=== PATIENT | female | born 1990 | race Caucasian/White ===

== ENCOUNTER 2022-05-09 12:27 | Emergency (ER) | payer BC, SELFPAY ==
[2022-05-09 12:34] VITALS: BP 134/88; PULSE 90; RESP 18; TEMP 36.8; O2SAT 99
[2022-05-09] MEDS: GI COCKTAIL (VISC LIDO/ANTACID) 30 ML PO (13:15)
[2022-05-09] MEDS: ONDANSETRON 2 MG/ML inj 4 MG IVP (13:23)
[2022-05-09 13:38] LABS: Basophils Percent Auto 0.6 % (0.0-3.0); Hematocrit 40.4 % (33.0-51.0); Hemoglobin* 13.6 gm/dL (12.0-16.0); Immature Granulocytes Pct Auto 0.2 %; Mean Corpuscular HGB Conc 34 gm/dL (32-36); Mean Corpuscular Hemoglobin 28 pg (26-34); Mean Corpuscular Volume 83 fL (80-100); Monocytes Percent Auto 9.1 % (0.0-11.0); Neutrophils Percent Auto 65.1 % (42.0-72.0); Platelet Count* 425 K/uL (140-440); RDW Coefficient of Variation % 12.8 % (11.5-15.5); Red Blood Count 4.85 m/uL (4.00-5.20); White Blood Count* 12.46 K/uL (4.50-11.00)
[2022-05-09 13:43] LABS: Slide Review Reflex No
[2022-05-09 13:51] VITALS: BP 150/105; PULSE 85; O2SAT 99
[2022-05-09 13:57] LABS: Chloride* 105 mmol/L (96-114)
[2022-05-09 13:58] LABS: Potassium* 4.2 mmol/L (3.6-5.1); Sodium* 137 mmol/L (135-149)
[2022-05-09 14:00] LABS: Albumin* 4.4 g/dL (3.3-5.0); Creatinine* 0.8 mg/dL (0.5-1.5); Estimated Glomerular Filt Rate 101 ml/min
[2022-05-09 14:01] LABS: Blood Urea Nitrogen* 10 mg/dL (5-24); Carbon Dioxide* 25 mmol/L (20-32); Glucose* 93 mg/dL (60-115)
[2022-05-09 14:02] LABS: Calcium* 9.2 mg/dL (8.4-10.6)
[2022-05-09 14:03] LABS: Aspartate Amino Transferase* 27 U/L (12-35); Bilirubin Direct* 0.2 mg/dL (0.0-0.5); Bilirubin Total* 0.5 mg/dL (0.1-1.5); D Dimer Quantitative* 0.48 ug/ml (0.00-0.50); Total Protein* 7.5 g/dL (6.0-8.3)
[2022-05-09 14:04] LABS: Alanine Aminotransferase* 28 U/L (4-35); Alkaline Phosphatase* 118 U/L (40-150); C Reactive Protein* 1.7 mg/dL (0.5-1.0)
[2022-05-09 14:14] LABS: Troponin I* < 0.01 ng/mL (0.01-0.04)
[2022-05-09] MEDS: 0.9 % SODIUM CHLORIDE 1000 ml 1,000 ML IV (14:38)
[2022-05-09] MEDS: KETOROLAC 30 MG/ML inj IVP (14:38)
--- NOTE | 2022-05-09 15:19 | ED_ITS ---
HPI - Abdominal Pain General Chief Complaint: Unspecified Complaint, Adult Stated Complaint: Esophagus pain Time Seen by Provider: 05/09/22 12:49 History of Present Illness HPI narrative: 32-year-old woman sent to the emergency department after call in to triage. Complaint of burning mid chest pain radiating into throat and jaw and into back. This is not a new complaint. Is not short of breath. She does have history of this last occurred about a month ago. Does have a history of heartburn/GERD and takes 20 mg of omeprazole daily. Was evaluated for gallbladder disease in the past with a normal ultrasound per her report. Does not have a cardiac history. Mother had gallbladder disease with similar symptoms apparently. Has woke up choking in the past in the middle of the night. She does feel nauseated now. Does have a sleep apnea workup/treatment pending. No fever. Related Data Allergies Allergy/AdvReac Type Severity Reaction Status Date / Time No Known Drug Allergies Allergy Verified 05/09/22 12:39 Review of Systems Status of ROS Reports: 10 or more systems reviewed and unremarkable except as noted in History and below PFSH PFS Social History Smoking Status: Former smoker How often do you have a drink containing alcohol: monthly or less How often do you have six or more drinks on one occasion: Never AUDIT-C Alcohol total score: 1 Non-prescribed substance use: denies use Exam 2 Narrative: Exam Narrative: Pleasant. NAD. Hair dyed teal. Breathing easily. Lungs are clear. Heart with mildly elevated rate in a regular rhythm. Oropharynx is sticky neck is supple LA though she says she is a little sore to palpation in the upper cervical lymph chain. Abdomen is soft overweight mildly tender in the epigastri um but not in the right upper quadrant. Extremities are without edema. Well perfused. No flank pain. She is sore to palpation in the rhomboids bilaterally. Const: Vital Signs, click to edit/add: Vital Signs - 24 hr 05/09/22 12:34 05/09/22 13:51 05/09/22 15:21 Temperature 98.3 F Pulse Rate [Pulse Oximeter] 90 85 82 Respiratory Rate 18 Blood Pressure [Ri ght Upper Arm] 134/88 150/105 H 159/99 H Pulse Oximetry 99 99 98 Oxygen Delivery Me thod Room Air Room Air Documenting provider has reviewed patient's vital signs: yes Course Vital Signs Vital signs: Initial Vital Signs Temperature 98.3 F 05/09/22 12:34 Temperature Source Temporal Artery Scan 05/09/22 12:34 Pulse Rate 90 05/09/22 12:34 Pulse Rhythm 05/09/22 12:34 Respiratory Rate 18 05/09/22 12:34 Blood Pressure 134/88 05/09/22 12:34 Blood Pressure Mean 103 05/09/22 12:34 Blood Pressure Position Sitting 05/09/22 12:34 Pulse Oximetry 99 05/09/22 12:34 Vital Signs Temperature 98.3 F 05/09/22 12:34 Pulse Rate 90 05/09/22 12:34 Respiratory Rate 18 05/09/22 12:34 Blood Pressure 134/88 05/09/22 12:34 Pulse Oximetry 99 05/09/22 12:34 Temperature 98.3 F 05/09/22 12:34 Pulse Rate 82 05/09/22 15:21 Respiratory Rate 18 05/09/22 12:34 Blood Pressure 159/99 H 05/09/22 15:21 Pulse Oximetry 98 05/09/22 15:21 Oxygen Delivery Method 05/09/22 15:21 MDM - Abdominal Pain MDM Narrative Medical decision making narrative: I think GERD related discomfort is most likely etiology. Differential also includes pulmonary embolus, ischemic cardiac event, vascular dissection, esophageal spasm, pneumonia, dysrhythmia, pneumomediastinum or pneumothorax. IV will be placed. Will look for abnormal labs and imaging accordingly. Zofran and GI cocktail. On reassessment discomfort was markedly improved though still slightly present. Had developed headache ?migraine? possibly from a fluorescent lights. IV was initiated and given ketorolac. Labs are generally unremarkable-see below. Medical Records Attestation: I reviewed the patient's medical records. Lab Data Attestation: I reviewed the patient's lab results. Labs: Lab Results 05/09/22 05/09/22 05/09/22 Range/Units 13:25 13:25 13:25 WBC 12.46 H (4.50-11.00) K/uL RBC 4.85 (4.00-5.20) m/uL Hgb 13.6 (12.0-16.0) gm/dL Hct 40.4 (33.0-51.0) % MCV 83 (80-100) fL MCH 28 (26-34) pg MCHC 34 (32-36) gm/dL RDW Coeff of Jona 12.8 (11.5-15.5) % Plt Count 425 (140-440) K/uL Neut % (Auto) 65.1 (42.0-72.0) % Lymph % (Auto) 23.0 (20-44) % [place] % (Auto) 9.1 (0.0-11.0) % Eos % (Auto) 2.0 (0.0-7.0) % Baso % (Auto) 0.6 (0.0-3.0) % Neut # (Auto) 8.10 H (1.7-7.0) K/uL Lymph # (Auto) 2.90 (0.90-2.90) K/uL [place] # (Auto) 1.10 H (0.00-0.90) K/UL Eos # (Auto) 0.20 (0.00-0.50) K/uL Baso # (Auto) 0.10 (0.00-0.30) K/uL D-Dimer Quant (PE/DVT) 0.48 (0.00-0.50) ug/ml Sodium 137 (135-149) mmol/L Potassium 4.2 (3.6-5.1) mmol/L Chloride 105 (96-114) mmol/L Carbon Dioxide 25 (20-32) mmol/L BUN 10 (5-24) mg/dL Creatinine 0.8 (0.5-1.5) mg/dL Estimated GFR 101 ml/min Glucose 93 (60-115) mg/dL Calcium 9.2 (8.4-10.6) mg/dL Total Bilirubin (0.1-1.5) mg/dL Direct Bilirubin (0.0-0.5) mg/dL AST (12-35) U/L ALT (4-35) U/L Alkaline Phosphatase (40-150) U/L Troponin I (0.01-0.04) ng/mL C-Reactive Protein 1.7 H (0.5-1.0) mg/dL Total Protein (6.0-8.3) g/dL Albumin (3.3-5.0) g/dL 05/09/22 Range/Units 13:25 WBC (4.50-11.00) K/uL RBC (4.00-5.20) m/uL Hgb (12.0-16.0) gm/dL Hct (33.0-51.0) % MCV (80-100) fL MCH (26-34) pg MCHC (32-36) gm/dL RDW Coeff of Jona (11.5-15.5) % Plt Count (140-440) K/uL Neut % (Auto) (42.0-72.0) % Lymph % (Auto) (20-44) % [place] % (Auto) (0.0-11.0) % Eos % (Auto) (0.0-7.0) % Baso % (Auto) (0.0-3.0) % Neut # (Auto) (1.7-7.0) K/uL Lymph # (Auto) (0.90-2.90) K/uL [place] # (Auto) (0.00-0.90) K/UL Eos # (Auto) (0.00-0.50) K/uL Baso # (Auto) (0.00-0.30) K/uL D-Dimer Quant (PE/DVT) (0.00-0.50) ug/ml Sodium (135-149) mmol/L Potassium (3.6-5.1) mmol/L Chloride (96-114) mmol/L Carbon Dioxide (20-32) mmol/L BUN (5-24) mg/dL Creatinine (0.5-1.5) mg/dL Estimated GFR ml/min Glucose (60-115) mg/dL Calcium (8.4-10.6) mg/dL Total Bilirubin 0.5 (0.1-1.5) mg/dL Direct Bilirubin 0.2 (0.0-0.5) mg/dL AST 27 (12-35) U/L ALT 28 (4-35) U/L Alkaline Phosphatase 118 (40-150) U/L Troponin I < 0.01 L (0.01-0.04) ng/mL C-Reactive Protein (0.5-1.0) mg/dL Total Protein 7.5 (6.0-8.3) g/dL Albumin 4.4 (3.3-5.0) g/dL ECG Data Attestation: I personally reviewed and interpreted this ECG as follows: (Normal sinus rate of 87) Discharge Plan Discharge Clinical Impression: Chest pain due to GERD, Headache Patient Disposition: Home w/ Parent or Adult Condition: Improved Additional Instructions: Focus on hydration. Consider slow diet advance over the next 24-36 hours. Might double your omeprazole either to 40 mg daily or 20 mg twice a day over the next couple of weeks. For flares, could take liquid antacid/anti-gas or maybe famotidine. I would also followup to finish that sleep study evaluation or fitment for CPAP. Follow Up/Referrals: Johanny Mendosa DO [Primary Care Provider] - Stand Alone Forms: [employer] Info Instructions
[2022-05-09 15:21] VITALS: BP 159/99; PULSE 82; O2SAT 98
== END 2022-05-09 15:23 | disposition home or self-care (01) ==
PROVIDERS: Emergency Provider Family Medicine; PCP Family Medicine
DX: R07.89 Other chest pain (principal); K21.9 Gastro-esophageal reflux disease without esophagitis; R51.9 Headache, unspecified
CPT/HCPCS: 36415; 80048; 80076; 84484; 85025; 85379; 86140; 93005; 96374; 96375; 99284; A9270; J1885; J2405; J7030